=== PATIENT | female | born 1950 | race Caucasian/White ===

== ENCOUNTER 2024-07-29 09:07 | Day surgery (SDC) | payer BC ==
[~2024-07-29] VITALS: Ht 157.5 cm; Wt 83.9 kg
[2024-07-29] MEDS ORDERED: NORMAL SALINE 10 ML VIAL ONE (10:00)
[2024-07-29] MEDS ORDERED: LIDOCAINE MPF 2% 20 MG/1 ML, 5 ML VIAL INH ONE (10:00)
[2024-07-29] MEDS ORDERED: methylPREDNISolone ACETATE 40 MG/ML ONE (10:00)
[2024-07-29] MEDS ORDERED: IOHEXOL 300 mgI/mL, 50 mL INFUS..BTL IV ONE (10:00)
[2024-07-29] MEDS: fentaNYL CITRATE/PF 100 MCG/2 ML AMP IVP ONE (10:36)
[2024-07-29] MEDS: fentaNYL CITRATE/PF 100 MCG/2 ML AMP ONE (10:36)
[2024-07-29] MEDS: MIDAZOLAM HCL 5 MG/5 ML VIAL IVP ONE (10:36)
[2024-07-29] MEDS: MIDAZOLAM HCL 5 MG/5 ML VIAL ONE (10:36)
[2024-07-29] MEDS: INSULIN REGULAR, HUMAN 100 UNITS/ML, 3 ML VIAL (humuLIN R) ONE (15:07)
[2024-07-29 15:09] VITALS: BP_SYST 152; PULSE 87; RESP 20; TEMP 98.2; O2SAT 95
== END 2024-07-29 11:15 | disposition home or self-care (01) ==
LOC: SDS 09:07 → SMU 09:08 → SDS 11:15
PROVIDERS: ATTEND Internal Medicine
DX: M51.16 Intervertebral disc disorders with radiculopathy, lumbar region (principal); M79.10 Myalgia, unspecified site; M47.26 Other spondylosis with radiculopathy, lumbar region; I10 Essential (primary) hypertension; E11.9 Type 2 diabetes mellitus without complications; E78.5 Hyperlipidemia, unspecified; M10.9 Gout, unspecified; M06.9 Rheumatoid arthritis, unspecified; Z96.651 Presence of right artificial knee joint; Z98.890 Other specified postprocedural states; Z79.899 Other long term (current) drug therapy
CPT/HCPCS: 62323; 82948; J2250; J3010; Q9967; J1010; 76000; J1030; J1815